=== PATIENT | female | born 1970 | race Caucasian/White ===

== ENCOUNTER 2021-04-13 21:42 | Inpatient (IN) | payer SELFPAY ==
[~2021-04-13] VITALS: Ht 152.4 cm; Wt 68.4 kg
[2021-04-13 22:23] LABS: CLARITY,URINE BLOODY; COLOR,URINE RED
[2021-04-13 22:27] LABS: BACTERIA,URINE 0 /HPF (0-FEW); RBC,URINE TNTC /HPF (0-2)
[2021-04-13] MEDS ORDERED: IV NORMAL SALINE 1000ML BAG 1,000 ML IV ONE (22:30)
[2021-04-13 22:46] LABS: BASO % 1 % (0-3); EOS # 0.3 x10^3/uL (0.0-0.7); EOS % 7 % (0-3); HEMATOCRIT 20.3 % (36.0-47.0); LYMPH # 1.8 x10^3/uL (1.0-4.8); LYMPH % 36 % (24-48); MEAN CORPUSCULAR HEMOGLOBIN 18 pg (25-35); MEAN CORPUSCULAR HGB CONC 28 g/dL (31-37); MEAN CORPUSCULAR VOLUME 62 fL (79-100); MONO # 0.6 x10^3/uL (0.0-1.1); MONO % 12 % (0-9); NEUT # 2.3 x10^3/uL (1.8-7.7); NEUT % 45 % (31-73); PLATELET COUNT 405 x10^3/uL (140-400); RED BLOOD COUNT 3.28 x10^6/uL (3.50-5.40); RED CELL DISTRIBUTION WIDTH 20.4 % (11.5-14.5); WHITE BLOOD COUNT 5.1 x10^3/uL (4.0-11.0)
[2021-04-13 22:52] LABS: HEMOGLOBIN 5.7 g/dL (12.0-15.5)
[2021-04-13 22:55] LABS: CALCIUM 8.2 mg/dL (8.5-10.1); CREATININE 0.7 mg/dL (0.6-1.0); GFR 88.9; POTASSIUM 3.7 mmol/L (3.5-5.1)
[2021-04-13 23:00] LABS: ALBUMIN 3.6 g/dL (3.4-5.0); ALBUMIN/GLOBULIN RATIO 0.9 (1.0-1.7); TOTAL BILIRUBIN 0.2 mg/dL (0.2-1.0); TOTAL PROTEIN 7.4 g/dL (6.4-8.2)
[2021-04-13 23:16] LABS: PROTHROMBIN TIME PATIENT 13.1 SEC (11.7-14.0)
--- NOTE | 2021-04-13 23:16 | PHYS DOC ---
Past Medical History Past Surgical History: No Surgical History Smoking Status: Never Smoker Alcohol Use: Occasionally General Adult EDM: Chief Complaint: VAGINAL PROBLEM HPI: HPI: Patient is a 50 year old female who presents with 10 days of heavy vaginal bleeding and she states she is going through 1-2 pads an hour. She states now today she has been having some blurred vision. Patient states that she is having lower abdominal pain with this. She states she does not have a canvas repairer and has not been seen for this. She states however she has had anemia in the past. Patient rates her pain about a 5 out of 10. She is [place]-speaking and her son and are in the room interpreting for her. Patient denies chest pain, shortness of breath, syncope, headache, fever, back pain, numbness or tingling, focal weakness. She currently takes no medications daily. Review of Systems: Review of Systems: Constitutional: Denies fever or chills. [] Eyes: Denies change in visual acuity. + Intermittent blurred vision] HENT: Denies nasal congestion or sore throat. [] Respiratory: Denies cough or shortness of breath. [] Cardiovascular: Denies chest pain or edema. [] GI: +abdominal pain, denies nausea, vomiting, bloody stools or diarrhea. [] : Denies dysuria. + Heavy vaginal bleeding [] Musculoskeletal: Denies back pain or joint pain. [] Integument: Denies rash. [] Neurologic: Denies headache, focal weakness or sensory changes. [] Endocrine: Denies polyuria or polydipsia. [] Lymphatic: Denies swollen glands. [] Psychiatric: Denies depression or anxiety. [] Heart Score: C/O Chest Pain: No Current Medications: Current Medications Medications (Trade) Dose Ordered Sig/Nabor Start Time Stop Time Status Last Admin Dose Admin Sodium Chloride 1,000 ml @ 1,000 mls/hr 1X ONCE 04/13/21 22:30 04/13/21 23:29 04/13/21 22:34 1,000 MLS/HR Allergies: Allergies: Allergies Coded Allergies Type Severity Reaction Last Updated Verified No Known Drug Allergies 04/13/21 No Physical Exam: PE: Constitutional: Well developed, well nourished, no acute distress, non-toxic appearance. [] HENT: Normocephalic, atraumatic, bilateral external ears normal, oropharynx moist, no oral exudates, nose normal. [] Eyes: PERRLA, EOMI, conjunctiva normal, no discharge. [] Neck: Normal range of motion, no tenderness, supple, no stridor. [] Cardiovascular:Heart rate regular rhythm, no murmur [] Lungs & Thorax: Bilateral breath sounds clear to auscultation [] Abdomen: Bowel sounds normal, soft, no tenderness, no masses, no pulsatile masses. [] Skin: Warm, dry, no erythema, no rash. [] Back: No tenderness, no CVA tenderness. [] Extremities: No tenderness, no cyanosis, no clubbing, ROM intact, no edema. [] Neurologic: Alert and oriented X 3, normal motor function, normal sensory function, no focal deficits noted. [] Psychologic: Affect normal, judgement normal, mood normal. [] Normal physical exam Current Patient Data: Labs: Laboratory Tests Test 04/13/21 22:05 04/13/21 22:30 Urine Collection Type Unknown Urine Color Red Urine Clarity Bloody Urine pH (<5.0-8.0) Urine Specific [place] (1.000-1.030) Urine Protein mg/dL (NEG-TRACE) Urine Glucose (UA) mg/dL (NEG) Urine Ketones (Stick) mg/dL (NEG) Urine Blood (NEG) Urine Nitrite (NEG) Urine Bilirubin (NEG) Urine Urobilinogen Dipstick mg/dL (0.2 mg/dL) Urine Leukocyte Esterase (NEG) Urine RBC Tntc /HPF (0-2) Urine WBC 1-4 /HPF (0-4) Urine Squamous Epithelial Cells Few /LPF Urine Bacteria 0 /HPF (0-FEW) Urine Mucus Slight /LPF White Blood Count 5.1 x10^3/uL (4.0-11.0) Red Blood Count 3.28 x10^6/uL (3.50-5.40) L Hemoglobin 5.7 g/dL (12.0-15.5) *L Hematocrit 20.3 % (36.0-47.0) L Mean Corpuscular Volume 62 fL (79-100) L Mean Corpuscular Hemoglobin 18 pg (25-35) L Mean Corpuscular Hemoglobin Concent 28 g/dL (31-37) L Red Cell Distribution Width 20.4 % (11.5-14.5) H Platelet Count 405 x10^3/uL (140-400) H Neutrophils (%) (Auto) 45 % (31-73) Lymphocytes (%) (Auto) 36 % (24-48) Monocytes (%) (Auto) 12 % (0-9) H Eosinophils (%) (Auto) 7 % (0-3) H Basophils (%) (Auto) 1 % (0-3) Neutrophils # (Auto) 2.3 x10^3/uL (1.8-7.7) Lymphocytes # (Auto) 1.8 x10^3/uL (1.0-4.8) Monocytes # (Auto) 0.6 x10^3/uL (0.0-1.1) Eosinophils # (Auto) 0.3 x10^3/uL (0.0-0.7) Basophils # (Auto) 0.0 x10^3/uL (0.0-0.2) Platelet Estimate Pending Sodium Level 137 mmol/L (136-145) Potassium Level 3.7 mmol/L (3.5-5.1) Chloride Level 103 mmol/L (98-107) Carbon Dioxide Level 26 mmol/L (21-32) Anion Gap 8 (6-14) Blood Urea Nitrogen 9 mg/dL (7-20) Creatinine 0.7 mg/dL (0.6-1.0) Estimated GFR (Cockcroft-Gault) 88.9 BUN/Creatinine Ratio 13 (6-20) Glucose Level 106 mg/dL (70-99) H Calcium Level 8.2 mg/dL (8.5-10.1) L Total Bilirubin 0.2 mg/dL (0.2-1.0) Aspartate Amino Transferase (AST) 22 U/L (15-37) Alanine Aminotransferase (ALT) 29 U/L (14-59) Alkaline Phosphatase 110 U/L (46-116) Total Protein 7.4 g/dL (6.4-8.2) Albumin 3.6 g/dL (3.4-5.0) Albumin/Globulin Ratio 0.9 (1.0-1.7) L Laboratory Tests 04/13/21 22:30 Laboratory Tests 04/13/21 22:30 Microbiology 04/13/21 Wet Prep - Final, Complete Vital Signs: Vital Signs Date Time Temp Pulse Resp B/P (MAP) Pulse Ox O2 Delivery O2 Flow Rate FiO2 04/13/21 22:25 98.0 87 20 145/75 (98) 98 Room Air 98.0 EKG: EKG: [] Radiology/Procedures: Radiology/Procedures: [] Impression: [facility] [address] [place] [address] IMAGING REPORT Signed PATIENT: SHYANNE HALL ACCOUNT: [id number] : 1970 LOCATION: ER AGE: 50 SEX: F EXAM STATUS: REG ER ORD. PHYSICIAN: SPIKE RICHARD APRN REASON: HEAVY VAGINAL BLEEDING, ABD PAIN PROCEDURE: PELVIS W/TV US PELVIS W/TV History: Reason: HEAVY VAGINAL BLEEDING, ABD PAIN / Spl. Instructions: / History: Comparison: None Technique: Grayscale and color Doppler imaging of the pelvis was performed using transabdominal and transvaginal technique. Findings: The uterus measures 8.4 x 5.6 x 4.9 cm. Multiple nabothian cysts within the cervix largest measures 2.1 cm. The endometrial stripe measures 1.5 mm. Small fluid within the upper endometrial canal. Right ovary measures 4.9 x 2.9 x 3.0 cm. To right ovarian cysts measuring 4.2 x 3.3 cm and 3.5 x 2.3 cm. Left ovary not identified, may relate to positioning and overlying structures. IMPRESSION: 1. Small fluid within the upper endometrial canal. 2. Right ovarian simple cysts. Electronically signed by: Antwan Cardona DO (04/13/2021 11:51 PM) [facility] DICTATED and SIGNED BY: ANTWAN CARDONA DO DATE: 04/13/21 [id number] 0 Course & Med Decision Making: Course & Med Decision Making Pertinent Labs and Imaging studies reviewed. (See chart for details) See HPI. Alert and oriented x4. Ambulatory steady gait. Speaks in full clear sentences. and son interpret for the patient. Abdomen is soft and nontender. Skin pink warm and dry. Vital signs are within normal limits. Her hemoglobin is only 5.7. I ordered 2 units of blood. I have spoke to Dr. Cardona and he gave no other orders for the patient. Pelvic Exam: Corporate Tutor present Abdomen: Nontender External Genitalia: Normal Skin Speculum: Normal vaginal mucosa, large cervical discharge Bimanual: No adnexal masses or tenderness, No CMT [] Dragon Disclaimer: Dragon Disclaimer: This electronic medical record was generated, in whole or in part, using a voice recognition dictation system. Departure Departure Impression: Primary Impression: Low hemoglobin Additional Impression: Dysfunctional uterine bleeding Disposition: ADMITTED INPATIENT Admitting Physician: WILLAM Condition: STABLE Referrals: NO PCP (PCP) SPIKE RICHARD APRN Apr 13, 2021 23:16
--- NOTE | 2021-04-13 23:53 | RAD ---
US PELVIS W/TV History: Reason: HEAVY VAGINAL BLEEDING, ABD PAIN / Spl. Instructions: / History: Comparison: None Technique: Grayscale and color Doppler imaging of the pelvis was performed using transabdominal and t ransvaginal technique. Findings: The uterus measures 8.4 x 5.6 x 4.9 cm. Multiple nabothian cysts within the cervix largest measures 2.1 cm. The endometrial stripe measures 1.5 mm. Small fluid within the upper endometrial canal. Right ovary measures 4.9 x 2.9 x 3.0 cm. To right ovarian cysts measuring 4.2 x 3.3 cm and 3.5 x 2.3 cm. Left ovary not identified, may relate to positioning and overlying structures. IMPRESSION: 1. Small fluid within the upper endometrial canal. 2. Right ovarian simple cysts. Electronically signed by: Antwan Thurston DO (04/13/2021 11:51 PM) [facility]
[2021-04-14] VITALS (14 sets, daily range): BP systolic 106–141; BP diastolic 57–85
[2021-04-14 00:17] LABS: ANISOCYTOSIS MOD; HYPOCHROMIA MARKED; MICROCYTOSIS MARKED; PLT ESTIMATE ADEQUATE (ADEQUATE); POLYCHROMASIA SLIGHT
[2021-04-14 00:18] LABS: OVALOCYTES OCC; SPHEROCYTES FEW; TARGET CELLS OCC
[2021-04-14 07:39] LABS: BASO # 0.1 x10^3/uL (0.0-0.2); BASO % 2 % (0-3); EOS # 0.2 x10^3/uL (0.0-0.7); EOS % 6 % (0-3); HEMATOCRIT 24.9 % (36.0-47.0); LYMPH # 1.4 x10^3/uL (1.0-4.8); LYMPH % 33 % (24-48); MEAN CORPUSCULAR HEMOGLOBIN 21 pg (25-35); MEAN CORPUSCULAR HGB CONC 31 g/dL (31-37); MEAN CORPUSCULAR VOLUME 67 fL (79-100); MONO # 0.5 x10^3/uL (0.0-1.1); MONO % 12 % (0-9); NEUT # 2.1 x10^3/uL (1.8-7.7); NEUT % 48 % (31-73); PLATELET COUNT 344 x10^3/uL (140-400); RED BLOOD COUNT 3.74 x10^6/uL (3.50-5.40); RED CELL DISTRIBUTION WIDTH 26.5 % (11.5-14.5); WHITE BLOOD COUNT 4.3 x10^3/uL (4.0-11.0)
[2021-04-14 07:53] LABS: HEMOGLOBIN 7.7 g/dL (12.0-15.5)
[2021-04-14 08:00] LABS: ALBUMIN 3.2 g/dL (3.4-5.0); ALBUMIN/GLOBULIN RATIO 0.9 (1.0-1.7); CREATININE 0.6 mg/dL (0.6-1.0); GFR 106.3; POTASSIUM 4.1 mmol/L (3.5-5.1); TOTAL BILIRUBIN 0.4 mg/dL (0.2-1.0); TOTAL PROTEIN 6.7 g/dL (6.4-8.2)
--- NOTE | 2021-04-14 10:17 | PDOC2 ---
CONSULT Date of Consult Date of Consult DATE: 04/14/21 TIME: 10:16 Reason for Consult Reason for Consult: Anemia, VB History of Present Illness Reason for Visit: 50y who was admitted for transfusion. The pt presented to the ER with 10 days of heavy bleeding. At times she was going through 1-2 pads and hour. Last night the bleeding was increasingly heavy. She has never had bleeding like this before. It is heavier and longer than ever. Although she feels that her periods have been heavier since her last in 2007. Typically her periods are monthly, but prior to this period that began in the end of Mar, she had not had a period since Jan. She has never received a transfusion in the past related to her period. She does not have an chair caner or PCP. In the ER her Hgb was found to be 5.7. An u/s revealed a uterus measuring 8.4 x 5.6 x 4.9 cm with a 4.2 cm right ovarian cyst. PMH: Denies PSH: Denies Meds: None All: NKDA OBHx: 5 x TSVD Counter Intelligence: LMP 04/04/21 Never contraception 15yo / regular SH: no tob, no EtOH FH: noncontributory Current Problem List Problem List Problems Medical Problems: (1) Dysfunctional uterine bleeding Status: Acute (2) Low hemoglobin Status: Acute Current Medications Current Medications Current Medications Sodium Chloride 1,000 ml @ 1,000 mls/hr 1X ONCE IV Last administered on 04/13/21at 22:34; Start 04/13/21 at 22:30; Stop 04/13/21 at 23:29; Status DC Medroxyprogesterone Acetate (Provera) 5 mg DAILY PO Last administered on 04/14/21at 09:15; Start 04/14/21 at 09:00 Allergies Allergies: Coded Allergies: No Known Drug Allergies (Unverified , 04/13/21) Physical Exam General: Alert, Oriented X3, Cooperative, No acute distress HEENT: PERRLA, Mucous membr. moist/pink Lungs: Clear to auscultation, Normal air movement Heart: Regular rate, Normal S1, Normal S2, No murmurs Abdomen: Normal bowel sounds, Soft, No tenderness, No hepatosplenomegaly, No masses Extremities: No clubbing, No cyanosis, No edema, Normal pulses, No tenderness/swelling Skin: No rashes, No breakdown Neuro: Normal gait, Normal speech, Normal tone, Sensation intact, Reflexes 2+ Psych/Mental Status: Mental status NL, Mood NL Vitals VITALS Vital Signs Date Time Temp Pulse Resp B/P (MAP) Pulse Ox O2 Delivery O2 Flow Rate FiO2 04/14/21 08:00 Room Air 04/14/21 07:48 98.5 71 16 118/77 98.5 04/14/21 07:00 100 Labs Labs Laboratory Tests Test 04/13/21 22:05 04/13/21 22:30 04/14/21 07:25 Urine Collection Type Unknown Urine Color Red Urine Clarity Bloody Urine pH (<5.0-8.0) Urine Specific [place] (1.000-1.030) Urine Protein mg/dL (NEG-TRACE) Urine Glucose (UA) mg/dL (NEG) Urine Ketones (Stick) mg/dL (NEG) Urine Blood (NEG) Urine Nitrite (NEG) Urine Bilirubin (NEG) Urine Urobilinogen Dipstick mg/dL (0.2 mg/dL) Urine Leukocyte Esterase (NEG) Urine RBC Tntc /HPF (0-2) Urine WBC 1-4 /HPF (0-4) Urine Squamous Epithelial Cells Few /LPF Urine Bacteria 0 /HPF (0-FEW) Urine Mucus Slight /LPF White Blood Count 5.1 x10^3/uL (4.0-11.0) 4.3 x10^3/uL (4.0-11.0) Red Blood Count 3.28 x10^6/uL (3.50-5.40) 3.74 x10^6/uL (3.50-5.40) Hemoglobin 5.7 g/dL (12.0-15.5) 7.7 g/dL (12.0-15.5) Hematocrit 20.3 % (36.0-47.0) 24.9 % (36.0-47.0) Mean Corpuscular Volume 62 fL (79-100) 67 fL (79-100) Mean Corpuscular Hemoglobin 18 pg (25-35) 21 pg (25-35) Mean Corpuscular Hemoglobin Concent 28 g/dL (31-37) 31 g/dL (31-37) Red Cell Distribution Width 20.4 % (11.5-14.5) 26.5 % (11.5-14.5) Platelet Count 405 x10^3/uL (140-400) 344 x10^3/uL (140-400) Neutrophils (%) (Auto) 45 % (31-73) 48 % (31-73) Lymphocytes (%) (Auto) 36 % (24-48) 33 % (24-48) Monocytes (%) (Auto) 12 % (0-9) 12 % (0-9) Eosinophils (%) (Auto) 7 % (0-3) 6 % (0-3) Basophils (%) (Auto) 1 % (0-3) 2 % (0-3) Neutrophils # (Auto) 2.3 x10^3/uL (1.8-7.7) 2.1 x10^3/uL (1.8-7.7) Lymphocytes # (Auto) 1.8 x10^3/uL (1.0-4.8) 1.4 x10^3/uL (1.0-4.8) Monocytes # (Auto) 0.6 x10^3/uL (0.0-1.1) 0.5 x10^3/uL (0.0-1.1) Eosinophils # (Auto) 0.3 x10^3/uL (0.0-0.7) 0.2 x10^3/uL (0.0-0.7) Basophils # (Auto) 0.0 x10^3/uL (0.0-0.2) 0.1 x10^3/uL (0.0-0.2) Platelet Estimate Adequate (ADEQUATE) Polychromasia Slight Hypochromasia Marked Anisocytosis Mod Microcytosis Marked Spherocytes Few Target Cells Occ Ovalocytes Occ Prothrombin Time 13.1 SEC (11.7-14.0) Prothromb Time International Ratio 1.0 (0.8-1.1) Activated Partial Thromboplast Time 28 SEC (24-38) Maternal Serum HCG Beta Subunit < 1 mIU/mL (0-5) Sodium Level 137 mmol/L (136-145) 141 mmol/L (136-145) Potassium Level 3.7 mmol/L (3.5-5.1) 4.1 mmol/L (3.5-5.1) Chloride Level 103 mmol/L (98-107) 109 mmol/L (98-107) Carbon Dioxide Level 26 mmol/L (21-32) 25 mmol/L (21-32) Anion Gap 8 (6-14) 7 (6-14) Blood Urea Nitrogen 9 mg/dL (7-20) 8 mg/dL (7-20) Creatinine 0.7 mg/dL (0.6-1.0) 0.6 mg/dL (0.6-1.0) Estimated GFR (Cockcroft-Gault) 88.9 106.3 BUN/Creatinine Ratio 13 (6-20) 13 (6-20) Glucose Level 106 mg/dL (70-99) 93 mg/dL (70-99) Calcium Level 8.2 mg/dL (8.5-10.1) 8.0 mg/dL (8.5-10.1) Iron Level 18 ug/dL (50-170) Total Iron Binding Capacity 471 ug/dL (250-450) Iron Saturation 4 % (15-34) Ferritin 2 ng/mL (8-252) Total Bilirubin 0.2 mg/dL (0.2-1.0) 0.4 mg/dL (0.2-1.0) Aspartate Amino Transf (AST/SGOT) 22 U/L (15-37) 24 U/L (15-37) Alanine Aminotransferase (ALT/SGPT) 29 U/L (14-59) 26 U/L (14-59) Alkaline Phosphatase 110 U/L (46-116) 90 U/L (46-116) Total Protein 7.4 g/dL (6.4-8.2) 6.7 g/dL (6.4-8.2) Albumin 3.6 g/dL (3.4-5.0) 3.2 g/dL (3.4-5.0) Albumin/Globulin Ratio 0.9 (1.0-1.7) 0.9 (1.0-1.7) Laboratory Tests Test 04/13/21 22:05 04/13/21 22:30 04/14/21 07:25 Urine Collection Type Unknown Urine Color Red Urine Clarity Bloody Urine pH (<5.0-8.0) Urine Specific [place] (1.000-1.030) Urine Protein mg/dL (NEG-TRACE) Urine Glucose (UA) mg/dL (NEG) Urine Ketones (Stick) mg/dL (NEG) Urine Blood (NEG) Urine Nitrite (NEG) Urine Bilirubin (NEG) Urine Urobilinogen Dipstick mg/dL (0.2 mg/dL) Urine Leukocyte Esterase (NEG) Urine RBC Tntc /HPF (0-2) Urine WBC 1-4 /HPF (0-4) Urine Squamous Epithelial Cells Few /LPF Urine Bacteria 0 /HPF (0-FEW) Urine Mucus Slight /LPF White Blood Count 5.1 x10^3/uL (4.0-11.0) 4.3 x10^3/uL (4.0-11.0) Red Blood Count 3.28 x10^6/uL (3.50-5.40) 3.74 x10^6/uL (3.50-5.40) Hemoglobin 5.7 g/dL (12.0-15.5) 7.7 g/dL (12.0-15.5) Hematocrit 20.3 % (36.0-47.0) 24.9 % (36.0-47.0) Mean Corpuscular Volume 62 fL (79-100) 67 fL (79-100) Mean Corpuscular Hemoglobin 18 pg (25-35) 21 pg (25-35) Mean Corpuscular Hemoglobin Concent 28 g/dL (31-37) 31 g/dL (31-37) Red Cell Distribution Width 20.4 % (11.5-14.5) 26.5 % (11.5-14.5) Platelet Count 405 x10^3/uL (140-400) 344 x10^3/uL (140-400) Neutrophils (%) (Auto) 45 % (31-73) 48 % (31-73) Lymphocytes (%) (Auto) 36 % (24-48) 33 % (24-48) Monocytes (%) (Auto) 12 % (0-9) 12 % (0-9) Eosinophils (%) (Auto) 7 % (0-3) 6 % (0-3) Basophils (%) (Auto) 1 % (0-3) 2 % (0-3) Neutrophils # (Auto) 2.3 x10^3/uL (1.8-7.7) 2.1 x10^3/uL (1.8-7.7) Lymphocytes # (Auto) 1.8 x10^3/uL (1.0-4.8) 1.4 x10^3/uL (1.0-4.8) Monocytes # (Auto) 0.6 x10^3/uL (0.0-1.1) 0.5 x10^3/uL (0.0-1.1) Eosinophils # (Auto) 0.3 x10^3/uL (0.0-0.7) 0.2 x10^3/uL (0.0-0.7) Basophils # (Auto) 0.0 x10^3/uL (0.0-0.2) 0.1 x10^3/uL (0.0-0.2) Platelet Estimate Adequate (ADEQUATE) Polychromasia Slight Hypochromasia Marked Anisocytosis Mod Microcytosis Marked Spherocytes Few Target Cells Occ Ovalocytes Occ Prothrombin Time 13.1 SEC (11.7-14.0) Prothromb Time International Ratio 1.0 (0.8-1.1) Activated Partial Thromboplast Time 28 SEC (24-38) Maternal Serum HCG Beta Subunit < 1 mIU/mL (0-5) Sodium Level 137 mmol/L (136-145) 141 mmol/L (136-145) Potassium Level 3.7 mmol/L (3.5-5.1) 4.1 mmol/L (3.5-5.1) Chloride Level 103 mmol/L (98-107) 109 mmol/L (98-107) Carbon Dioxide Level 26 mmol/L (21-32) 25 mmol/L (21-32) Anion Gap 8 (6-14) 7 (6-14) Blood Urea Nitrogen 9 mg/dL (7-20) 8 mg/dL (7-20) Creatinine 0.7 mg/dL (0.6-1.0) 0.6 mg/dL (0.6-1.0) Estimated GFR (Cockcroft-Gault) 88.9 106.3 BUN/Creatinine Ratio 13 (6-20) 13 (6-20) Glucose Level 106 mg/dL (70-99) 93 mg/dL (70-99) Calcium Level 8.2 mg/dL (8.5-10.1) 8.0 mg/dL (8.5-10.1) Iron Level 18 ug/dL (50-170) Total Iron Binding Capacity 471 ug/dL (250-450) Iron Saturation 4 % (15-34) Ferritin 2 ng/mL (8-252) Total Bilirubin 0.2 mg/dL (0.2-1.0) 0.4 mg/dL (0.2-1.0) Aspartate Amino Transf (AST/SGOT) 22 U/L (15-37) 24 U/L (15-37) Alanine Aminotransferase (ALT/SGPT) 29 U/L (14-59) 26 U/L (14-59) Alkaline Phosphatase 110 U/L (46-116) 90 U/L (46-116) Total Protein 7.4 g/dL (6.4-8.2) 6.7 g/dL (6.4-8.2) Albumin 3.6 g/dL (3.4-5.0) 3.2 g/dL (3.4-5.0) Albumin/Globulin Ratio 0.9 (1.0-1.7) 0.9 (1.0-1.7) Assessment/Plan Assessment/Plan Assessment: 50y who was admitted for transfusion Recommendations: 1.) Anemia Hgb 5.7 on admission. Has risen to 7.7 after 2U pRBC. Most likely to her heavy menstrual cycle. 2.) Menorrhagia Feels that her period have been heavy since 2007. Over the last 10 days it has been increasingly heavy. Feels that it has improved over last night. Discussed medical and surgical management options. Medical management included hormonal contraception like Provera, Depo, etc. Surgical options would include ablation and hysterectomy. Discussed starting with medical options initially and if ineffective could move toward surgical options. Would start Provera 5 mg daily. If bleeding continues to be slow could d/c later today or tomorrow. 3.) Ovarian cyst simple 4.2 cm. No intervention necessary 4.) Elevated BP may have HTN. Does not have a PCP 5.) Will cont to follow while hospitalized 6.) When d/c will need 1 week f/u in my office MADELYN CARDONA MD Apr 14, 2021 10:17
[2021-04-14] MEDS ORDERED: ELECTROLYTE (NON-ICU) PROTOCOL. MC PRN (10:30)
[2021-04-14] MEDS ORDERED: ZOLPIDEM 5 MG TABLET. PO PRN (10:30)
[2021-04-14] MEDS ORDERED: CALCIUM CARBONATE 500 MG TAB.CHEW PO PRN (10:30)
[2021-04-14] MEDS ORDERED: MORPHINE SULFATE 2 MG/ML INJ. IV PRN ×2 (10:30)
[2021-04-14] MEDS ORDERED: ONDANSETRON PF 4 MG/2 ML VIAL. IVP PRN (10:30)
[2021-04-14] MEDS ORDERED: IBUPROFEN 400 MG TABLET. PO ONE (12:45)
--- NOTE | 2021-04-14 13:26 | PDOC1 ---
History and Physical Date of Service: DOS: DATE: 04/14/21 TIME: 13:17 Chief Complaint: Chief Complain: abnormal uterine bleeding History of Present Illness: HPI: Patient is a 50 year old female who presents with 10 days of heavy vaginal bleeding to the point of going through 1-2 pads an hour. She developed some blurry vision leading her to present overnight. Patient states that she is having lower abdominal pain with this. She states she does not have a red lead burner and has not been seen for this. She states however she has had anemia in the past. Patient rates her pain about a 5 out of 10. She is Occitan-speaking and her son and are in the room interpreting for her. Patient denies chest pain, shortness of breath, syncope, headache, fever, back pain, numbness or tingling, focal weakness. She currently takes no medications daily. Past Medical/Surgical History: PMH/PSH: Past Surgical History: No Surgical History Smoking Status: Never Smoker Alcohol Use: Occasionally Denies drug use Allergies: Allergies: Coded Allergies: No Known Drug Allergies (Unverified , 04/13/21) Family History: Family History: none known Current Medications: Current Medications Current Medications Sodium Chloride 1,000 ml @ 1,000 mls/hr 1X ONCE IV Last administered on 04/13/21at 22:34; Start 04/13/21 at 22:30; Stop 04/13/21 at 23:29; Status DC Medroxyprogesterone Acetate (Provera) 5 mg DAILY PO Last administered on 04/14/21at 09:15; Start 04/14/21 at 09:00 Ondansetron HCl (Zofran) 4 mg PRN Q6HRS PRN IVP NAUSEA/VOMITING; Start 04/14/21 at 10:30 Calcium Carbonate/ Glycine (Tums) 500 mg PRN Q3HRS PRN PO UPSET STOMACH; Start 04/14/21 at 10:30 Zolpidem Tartrate (Ambien) 5 mg PRN QHS PRN PO INSOMNIA, MAY REPEAT IN 1HR; Start 04/14/21 at 10:30 Info (Non-Icu Electrolyte Protocol) 1 ea PRN DAILY PRN MC SEE COMMENTS; Start 04/14/21 at 10:30 Morphine Sulfate (Morphine Sulfate) 1 mg PRN Q1HR PRN IV MODERATE PAIN; Start 04/14/21 at 10:30 Morphine Sulfate (Morphine Sulfate) 2 mg PRN Q1HR PRN IV SEVERE PAIN; Start 04/14/21 at 10:30 Acetaminophen (Tylenol) 650 mg PRN Q6HRS PRN PO Headaches, Temp > 101.5F; Start 04/14/21 at 10:30 Senna/Docusate Sodium (Senna Plus) 1 tab BID PO ; Start 04/14/21 at 21:00 Ibuprofen (Motrin) 400 mg 1X ONCE PO Last administered on 04/14/21at 13:10; Start 04/14/21 at 12:45; Stop 04/14/21 at 12:49; Status DC ROS: Review of Systems Review of System Unlessnoted in HPI 14pt ROS was negative Physical Exam: Vital Signs: Vital Signs Date Time Temp Pulse Resp B/P (MAP) Pulse Ox O2 Delivery O2 Flow Rate FiO2 04/14/21 11:00 98.8 80 18 141/85 (103) 100 Room Air 98.8 Physcial Exam: GEN: No apparent distress. Alert and oriented HEENT: Normal cephalic, atraumatic, external auditory canals are patent EYES: Extraocular muscles are intact, pupil are equally round and reactive to light and accommodation MUSCULOSKELETAL: Well developed , well nourished, good range of motion ENDOCRINE: No thyromegaly was palpated LYMPHATICS: No cervical chain or axillary nodes were noted HEMATOPOIETIC: No bruising NECK: Supple, no JVD, no thyromegaly was noted LUNGS: Clear to auscultation in all lung coronel without rhonchi or wheezing HEART: RRR, S!, S2 present. Peripheral pulses intact, no obvious murmurs noted ABDOMEN: Soft, nontender. Positive bowel sounds, no organomegaly, normal bowel sounds EXTREMITIES: Without clubbing, cyanosis, or edema. Pedal pulses intact. Negative Homans sign NEUROLOGIC: Normal speech and tone. A&O x 3, moves all extremities, no obvious focal deficits PSYCHIATRIC: Normal affect, normal mood. Stable SKIN: No ulcerations or rashes, good skin turgor, no jaundice VASCULAR: Good capillary refill, neurovascular bundle appears to be intact Labs: Labs: Laboratory Tests Test 04/13/21 22:05 04/13/21 22:30 04/14/21 07:25 Urine Collection Type Unknown Urine Color Red Urine Clarity Bloody Urine pH (<5.0-8.0) Urine Specific [place] (1.000-1.030) Urine Protein mg/dL (NEG-TRACE) Urine Glucose (UA) mg/dL (NEG) Urine Ketones (Stick) mg/dL (NEG) Urine Blood (NEG) Urine Nitrite (NEG) Urine Bilirubin (NEG) Urine Urobilinogen Dipstick mg/dL (0.2 mg/dL) Urine Leukocyte Esterase (NEG) Urine RBC Tntc /HPF (0-2) Urine WBC 1-4 /HPF (0-4) Urine Squamous Epithelial Cells Few /LPF Urine Bacteria 0 /HPF (0-FEW) Urine Mucus Slight /LPF White Blood Count 5.1 x10^3/uL (4.0-11.0) 4.3 x10^3/uL (4.0-11.0) Red Blood Count 3.28 x10^6/uL (3.50-5.40) 3.74 x10^6/uL (3.50-5.40) Hemoglobin 5.7 g/dL (12.0-15.5) 7.7 g/dL (12.0-15.5) Hematocrit 20.3 % (36.0-47.0) 24.9 % (36.0-47.0) Mean Corpuscular Volume 62 fL (79-100) 67 fL (79-100) Mean Corpuscular Hemoglobin 18 pg (25-35) 21 pg (25-35) Mean Corpuscular Hemoglobin Concent 28 g/dL (31-37) 31 g/dL (31-37) Red Cell Distribution Width 20.4 % (11.5-14.5) 26.5 % (11.5-14.5) Platelet Count 405 x10^3/uL (140-400) 344 x10^3/uL (140-400) Neutrophils (%) (Auto) 45 % (31-73) 48 % (31-73) Lymphocytes (%) (Auto) 36 % (24-48) 33 % (24-48) Monocytes (%) (Auto) 12 % (0-9) 12 % (0-9) Eosinophils (%) (Auto) 7 % (0-3) 6 % (0-3) Basophils (%) (Auto) 1 % (0-3) 2 % (0-3) Neutrophils # (Auto) 2.3 x10^3/uL (1.8-7.7) 2.1 x10^3/uL (1.8-7.7) Lymphocytes # (Auto) 1.8 x10^3/uL (1.0-4.8) 1.4 x10^3/uL (1.0-4.8) Monocytes # (Auto) 0.6 x10^3/uL (0.0-1.1) 0.5 x10^3/uL (0.0-1.1) Eosinophils # (Auto) 0.3 x10^3/uL (0.0-0.7) 0.2 x10^3/uL (0.0-0.7) Basophils # (Auto) 0.0 x10^3/uL (0.0-0.2) 0.1 x10^3/uL (0.0-0.2) Platelet Estimate Adequate (ADEQUATE) Polychromasia Slight Hypochromasia Marked Anisocytosis Mod Microcytosis Marked Spherocytes Few Target Cells Occ Ovalocytes Occ Prothrombin Time 13.1 SEC (11.7-14.0) Prothromb Time International Ratio 1.0 (0.8-1.1) Activated Partial Thromboplast Time 28 SEC (24-38) Maternal Serum HCG Beta Subunit < 1 mIU/mL (0-5) Sodium Level 137 mmol/L (136-145) 141 mmol/L (136-145) Potassium Level 3.7 mmol/L (3.5-5.1) 4.1 mmol/L (3.5-5.1) Chloride Level 103 mmol/L (98-107) 109 mmol/L (98-107) Carbon Dioxide Level 26 mmol/L (21-32) 25 mmol/L (21-32) Anion Gap 8 (6-14) 7 (6-14) Blood Urea Nitrogen 9 mg/dL (7-20) 8 mg/dL (7-20) Creatinine 0.7 mg/dL (0.6-1.0) 0.6 mg/dL (0.6-1.0) Estimated GFR (Cockcroft-Gault) 88.9 106.3 BUN/Creatinine Ratio 13 (6-20) 13 (6-20) Glucose Level 106 mg/dL (70-99) 93 mg/dL (70-99) Calcium Level 8.2 mg/dL (8.5-10.1) 8.0 mg/dL (8.5-10.1) Iron Level 18 ug/dL (50-170) Total Iron Binding Capacity 471 ug/dL (250-450) Iron Saturation 4 % (15-34) Ferritin 2 ng/mL (8-252) Total Bilirubin 0.2 mg/dL (0.2-1.0) 0.4 mg/dL (0.2-1.0) Aspartate Amino Transf (AST/SGOT) 22 U/L (15-37) 24 U/L (15-37) Alanine Aminotransferase (ALT/SGPT) 29 U/L (14-59) 26 U/L (14-59) Alkaline Phosphatase 110 U/L (46-116) 90 U/L (46-116) Total Protein 7.4 g/dL (6.4-8.2) 6.7 g/dL (6.4-8.2) Albumin 3.6 g/dL (3.4-5.0) 3.2 g/dL (3.4-5.0) Albumin/Globulin Ratio 0.9 (1.0-1.7) 0.9 (1.0-1.7) Laboratory Tests Test 04/13/21 22:05 04/13/21 22:30 04/14/21 07:25 Urine Collection Type Unknown Urine Color Red Urine Clarity Bloody Urine pH (<5.0-8.0) Urine Specific [place] (1.000-1.030) Urine Protein mg/dL (NEG-TRACE) Urine Glucose (UA) mg/dL (NEG) Urine Ketones (Stick) mg/dL (NEG) Urine Blood (NEG) Urine Nitrite (NEG) Urine Bilirubin (NEG) Urine Urobilinogen Dipstick mg/dL (0.2 mg/dL) Urine Leukocyte Esterase (NEG) Urine RBC Tntc /HPF (0-2) Urine WBC 1-4 /HPF (0-4) Urine Squamous Epithelial Cells Few /LPF Urine Bacteria 0 /HPF (0-FEW) Urine Mucus Slight /LPF White Blood Count 5.1 x10^3/uL (4.0-11.0) 4.3 x10^3/uL (4.0-11.0) Red Blood Count 3.28 x10^6/uL (3.50-5.40) 3.74 x10^6/uL (3.50-5.40) Hemoglobin 5.7 g/dL (12.0-15.5) 7.7 g/dL (12.0-15.5) Hematocrit 20.3 % (36.0-47.0) 24.9 % (36.0-47.0) Mean Corpuscular Volume 62 fL (79-100) 67 fL (79-100) Mean Corpuscular Hemoglobin 18 pg (25-35) 21 pg (25-35) Mean Corpuscular Hemoglobin Concent 28 g/dL (31-37) 31 g/dL (31-37) Red Cell Distribution Width 20.4 % (11.5-14.5) 26.5 % (11.5-14.5) Platelet Count 405 x10^3/uL (140-400) 344 x10^3/uL (140-400) Neutrophils (%) (Auto) 45 % (31-73) 48 % (31-73) Lymphocytes (%) (Auto) 36 % (24-48) 33 % (24-48) Monocytes (%) (Auto) 12 % (0-9) 12 % (0-9) Eosinophils (%) (Auto) 7 % (0-3) 6 % (0-3) Basophils (%) (Auto) 1 % (0-3) 2 % (0-3) Neutrophils # (Auto) 2.3 x10^3/uL (1.8-7.7) 2.1 x10^3/uL (1.8-7.7) Lymphocytes # (Auto) 1.8 x10^3/uL (1.0-4.8) 1.4 x10^3/uL (1.0-4.8) Monocytes # (Auto) 0.6 x10^3/uL (0.0-1.1) 0.5 x10^3/uL (0.0-1.1) Eosinophils # (Auto) 0.3 x10^3/uL (0.0-0.7) 0.2 x10^3/uL (0.0-0.7) Basophils # (Auto) 0.0 x10^3/uL (0.0-0.2) 0.1 x10^3/uL (0.0-0.2) Platelet Estimate Adequate (ADEQUATE) Polychromasia Slight Hypochromasia Marked Anisocytosis Mod Microcytosis Marked Spherocytes Few Target Cells Occ Ovalocytes Occ Prothrombin Time 13.1 SEC (11.7-14.0) Prothromb Time International Ratio 1.0 (0.8-1.1) Activated Partial Thromboplast Time 28 SEC (24-38) Maternal Serum HCG Beta Subunit < 1 mIU/mL (0-5) Sodium Level 137 mmol/L (136-145) 141 mmol/L (136-145) Potassium Level 3.7 mmol/L (3.5-5.1) 4.1 mmol/L (3.5-5.1) Chloride Level 103 mmol/L (98-107) 109 mmol/L (98-107) Carbon Dioxide Level 26 mmol/L (21-32) 25 mmol/L (21-32) Anion Gap 8 (6-14) 7 (6-14) Blood Urea Nitrogen 9 mg/dL (7-20) 8 mg/dL (7-20) Creatinine 0.7 mg/dL (0.6-1.0) 0.6 mg/dL (0.6-1.0) Estimated GFR (Cockcroft-Gault) 88.9 106.3 BUN/Creatinine Ratio 13 (6-20) 13 (6-20) Glucose Level 106 mg/dL (70-99) 93 mg/dL (70-99) Calcium Level 8.2 mg/dL (8.5-10.1) 8.0 mg/dL (8.5-10.1) Iron Level 18 ug/dL (50-170) Total Iron Binding Capacity 471 ug/dL (250-450) Iron Saturation 4 % (15-34) Ferritin 2 ng/mL (8-252) Total Bilirubin 0.2 mg/dL (0.2-1.0) 0.4 mg/dL (0.2-1.0) Aspartate Amino Transf (AST/SGOT) 22 U/L (15-37) 24 U/L (15-37) Alanine Aminotransferase (ALT/SGPT) 29 U/L (14-59) 26 U/L (14-59) Alkaline Phosphatase 110 U/L (46-116) 90 U/L (46-116) Total Protein 7.4 g/dL (6.4-8.2) 6.7 g/dL (6.4-8.2) Albumin 3.6 g/dL (3.4-5.0) 3.2 g/dL (3.4-5.0) Albumin/Globulin Ratio 0.9 (1.0-1.7) 0.9 (1.0-1.7) Assessment/Plan Assessment/Plan Abnormal uterine bleeding, hx anemia unspecified type -Presenting with 10-day history heavy uterine bleeding. -Required 2 units of blood transfusion hemoglobin up above 7 -Gynecology consult. Given dose medroxyprogesterone. Bleeding seems to have slowed down since then. Monitor hemoglobin overnight. -Home meds as indicated -Hold off DVT prophylaxis with active bleed -Discussed with bedside RN Justifications for Admission Other Justification MARIMAR KELLY MD Apr 14, 2021 13:25
--- NOTE | 2021-04-14 14:24 | NUR ---
SS following for discharge planning. SS reviewed pt chart. Pt is from home with spouse and is currently on room air. Self pay. [facility] following. Discharge plan is currently to home when medically ready for discharge. SS will continue to follow for discharge planning.
[2021-04-14] MEDS: ACETAMINOPHEN 325 MG TABLET. PO PRN (16:12)
[2021-04-14] MEDS ORDERED: MORPHINE SULFATE 2 MG/ML INJ. IVP PRN (17:30)
[2021-04-14] MEDS: SENNOSIDES/DOCUSATE 8.6/50MG TABLET. PO SCH (20:39)
[2021-04-15 03:22] VITALS: BP 108/67
[2021-04-15 07:00] VITALS: BP 112/71
[2021-04-15 07:50] LABS: BASO # 0.1 x10^3/uL (0.0-0.2); BASO % 1 % (0-3); EOS # 0.6 x10^3/uL (0.0-0.7); EOS % 9 % (0-3); HEMATOCRIT 30.8 % (36.0-47.0); HEMOGLOBIN 9.3 g/dL (12.0-15.5); LYMPH % 29 % (24-48); MEAN CORPUSCULAR HEMOGLOBIN 21 pg (25-35); MEAN CORPUSCULAR HGB CONC 30 g/dL (31-37); MEAN CORPUSCULAR VOLUME 68 fL (79-100); MONO # 0.7 x10^3/uL (0.0-1.1); MONO % 11 % (0-9); NEUT # 3.5 x10^3/uL (1.8-7.7); NEUT % 50 % (31-73); PLATELET COUNT 409 x10^3/uL (140-400); RED BLOOD COUNT 4.54 x10^6/uL (3.50-5.40); RED CELL DISTRIBUTION WIDTH 25.4 % (11.5-14.5); WHITE BLOOD COUNT 6.9 x10^3/uL (4.0-11.0)
[2021-04-15] MEDS: SENNOSIDES/DOCUSATE 8.6/50MG TABLET. PO SCH ×2 (09:00→19:45)
[2021-04-15] MEDS: ACETAMINOPHEN 325 MG TABLET. PO PRN ×2 (09:31→17:15)
--- NOTE | 2021-04-15 09:35 | PDOC ---
[employer] PROGRESS NOTE Date of Service: DATE: 04/15/21 TIME: 09:35 Subjective: The pt feels so so. Her bleeding has improved. Informed the pt that her Hgb was stable. She feels that the injection had helped. The pt was asked about the pill (Provera). She states that it didnt seem to help as much as the injection. Explained that pill was for her bleeding. She feels that her bleeding increased a little after the pill. She feels the injection helped more. Told I was unclear what injection she was referring (likely the Morphine). The pt was under the impression that she was having surgery today. I asked the pt why she thought that was the case after our discussion yesterday. Explained that surgery would be reserved if medical management failed. She is worried about this occurring again. Explained that since this was an isolated event, it is likely to never occur again even if no intervention was taken. Objective: Vital Signs: Vital Signs Date Time Temp Pulse Resp B/P (MAP) Pulse Ox O2 Delivery O2 Flow Rate FiO2 04/14/21 07:00 98.5 71 16 118/77 (91) 100 Room Air 98.5 Vital Signs Date Time Temp Pulse Resp B/P (MAP) Pulse Ox O2 Delivery O2 Flow Rate FiO2 04/15/21 07:00 97.9 68 20 112/71 (85) 100 Room Air 97.9 Labs: Laboratory Tests Test 04/15/21 07:25 White Blood Count 6.9 x10^3/uL (4.0-11.0) Red Blood Count 4.54 x10^6/uL (3.50-5.40) Hemoglobin 9.3 g/dL (12.0-15.5) L Hematocrit 30.8 % (36.0-47.0) L Mean Corpuscular Volume 68 fL (79-100) L Mean Corpuscular Hemoglobin 21 pg (25-35) L Mean Corpuscular Hemoglobin Concent 30 g/dL (31-37) L Red Cell Distribution Width 25.4 % (11.5-14.5) H Platelet Count 409 x10^3/uL (140-400) H Neutrophils (%) (Auto) 50 % (31-73) Lymphocytes (%) (Auto) 29 % (24-48) Monocytes (%) (Auto) 11 % (0-9) H Eosinophils (%) (Auto) 9 % (0-3) H Basophils (%) (Auto) 1 % (0-3) Neutrophils # (Auto) 3.5 x10^3/uL (1.8-7.7) Lymphocytes # (Auto) 2.0 x10^3/uL (1.0-4.8) Monocytes # (Auto) 0.7 x10^3/uL (0.0-1.1) Eosinophils # (Auto) 0.6 x10^3/uL (0.0-0.7) Basophils # (Auto) 0.1 x10^3/uL (0.0-0.2) Laboratory Tests 04/15/21 07:25 Laboratory Tests 04/15/21 07:25 Physical Exam: GENERAL: No apparent distress. Alert and oriented. HEENT: Head normocephalic, atraumatic. NECK: Supple LUNGS: Clear to auscultation. HEART: RRR, S1, S2 present, pulses intact ABDOMEN: Soft, positive bowel sounds. EXTREMITIES: No cyanosis or edema. NEUROLOGIC: Normal speech, normal tone PSYCHIATRIC: Normal affect, normal mood. SKIN: No ulceration. Assessment & Plan: A/P 50y who was admitted for transfusion 1.) Anemia Hgb 5.7 -> 2U pRBC -> 7.7 -> 9.3. Most likely to her heavy menstrual cycle. 2.) Menorrhagia Feels that her period has been heavy since 2007. Over the last 10 days it has been increasingly heavy. Improving since admission. Would continue Provera 5 mg daily for the next 10 days. 3.) Ovarian cyst simple 4.2 cm. No intervention necessary 4.) Elevated BP a couple of mild BP over the hospitalization 5.) Pt stable to d/c, can f/u in my office in 1-2 wks MADELYN CARDONA MD Apr 15, 2021 09:35
[2021-04-15 11:00] VITALS: BP 114/69
--- NOTE | 2021-04-15 13:01 | NUR ---
SS following up with discharge planning. SS reviewed pt chart and discussed with pt RN. Pt is currently on room air. Discharge order on the chart for home with self care.
[2021-04-15] MEDS ORDERED: NORG1TAB6 PO (13:41)
[2021-04-15] MEDS ORDERED: FERR325T14 PO (13:42)
[2021-04-15] MEDS ORDERED: VITA1CAP5 PO (13:42)
--- NOTE | 2021-04-15 13:43 | PDOC ---
[employer] PROGRESS NOTE Date of Service DOS: DATE: 04/15/21 TIME: 13:42 Chief Complaint Chief Complaint menoraghia DUB symptomatic anemia iron deficiency Vitals/I&O Vitals/I&O: Vital Signs Date Time Temp Pulse Resp B/P (MAP) Pulse Ox O2 Delivery O2 Flow Rate FiO2 04/15/21 11:00 98.3 82 20 114/69 (84) 99 Room Air 98.3 I & O 04/14/21 04/14/21 04/15/21 15:00 23:00 07:00 Intake Total 240 ml 130 ml 400 ml Balance 240 ml 130 ml 400 ml Physical Exam General: Alert, Oriented X3, Cooperative, No acute distress Heart: Regular rate, Normal S1, Normal S2, No murmurs Abdomen: Normal bowel sounds, Soft, No tenderness, No hepatosplenomegaly, No ma sses Extremities: No clubbing, No cyanosis, No edema, Normal pulses, No tenderness/swelling Skin: No rashes, No breakdown Labs Labs: Laboratory Tests Test 04/15/21 07:25 White Blood Count 6.9 x10^3/uL (4.0-11.0) Red Blood Count 4.54 x10^6/uL (3.50-5.40) Hemoglobin 9.3 g/dL (12.0-15.5) Hematocrit 30.8 % (36.0-47.0) Mean Corpuscular Volume 68 fL (79-100) Mean Corpuscular Hemoglobin 21 pg (25-35) Mean Corpuscular Hemoglobin Concent 30 g/dL (31-37) Red Cell Distribution Width 25.4 % (11.5-14.5) Platelet Count 409 x10^3/uL (140-400) Neutrophils (%) (Auto) 50 % (31-73) Lymphocytes (%) (Auto) 29 % (24-48) Monocytes (%) (Auto) 11 % (0-9) Eosinophils (%) (Auto) 9 % (0-3) Basophils (%) (Auto) 1 % (0-3) Neutrophils # (Auto) 3.5 x10^3/uL (1.8-7.7) Lymphocytes # (Auto) 2.0 x10^3/uL (1.0-4.8) Monocytes # (Auto) 0.7 x10^3/uL (0.0-1.1) Eosinophils # (Auto) 0.6 x10^3/uL (0.0-0.7) Basophils # (Auto) 0.1 x10^3/uL (0.0-0.2) Assessment and Plan Assessmemt and Plan Problems Medical Problems: (1) Dysfunctional uterine bleeding Status: Acute (2) Low hemoglobin Status: Acute Comment Review of Relevant I have reviewed the following items herlinda (where applicable) has been applied. Justifications for Admission Other Justification MARCELA YADAV MD Apr 15, 2021 13:43
--- NOTE | 2021-04-15 13:45 | PDOC3 ---
Discharge Summary Visit Information Date of Admission: Apr 14, 2021 Date of Discharge: Apr 15, 2021 Final Diagnosis nino DUB symptomatic anemia iron deficiency Problems Medical Problems: (1) Dysfunctional uterine bleeding Status: Acute (2) Low hemoglobin Status: Acute Brief Hospital Course Allergies Allergies Coded Allergies Type Severity Reaction Last Updated Verified No Known Drug Allergies 04/13/21 No Vital Signs Vital Signs Date Time Temp Pulse Resp B/P (MAP) Pulse Ox O2 Delivery O2 Flow Rate FiO2 04/15/21 11:00 98.3 82 20 114/69 (84) 99 Room Air 98.3 Lab Results Laboratory Tests Test 04/13/21 22:05 04/13/21 22:30 04/14/21 07:25 04/15/21 07:25 Urine Collection Type Unknown Urine Color Red Urine Clarity Bloody Urine pH (<5.0-8.0) Urine Specific [place] (1.000-1.030) Urine Protein mg/dL (NEG-TRACE) Urine Glucose (UA) mg/dL (NEG) Urine Ketones (Stick) mg/dL (NEG) Urine Blood (NEG) Urine Nitrite (NEG) Urine Bilirubin (NEG) Urine Urobilinogen Dipstick mg/dL (0.2 mg/dL) Urine Leukocyte Esterase (NEG) Urine RBC Tntc /HPF (0-2) Urine WBC 1-4 /HPF (0-4) Urine Squamous Epithelial Cells Few /LPF Urine Bacteria 0 /HPF (0-FEW) Urine Mucus Slight /LPF White Blood Count 5.1 x10^3/uL (4.0-11.0) 4.3 x10^3/uL (4.0-11.0) 6.9 x10^3/uL (4.0-11.0) Red Blood Count 3.28 x10^6/uL (3.50-5.40) 3.74 x10^6/uL (3.50-5.40) 4.54 x10^6/uL (3.50-5.40) Hemoglobin 5.7 g/dL (12.0-15.5) 7.7 g/dL (12.0-15.5) 9.3 g/dL (12.0-15.5) Hematocrit 20.3 % (36.0-47.0) 24.9 % (36.0-47.0) 30.8 % (36.0-47.0) Mean Corpuscular Volume 62 fL (79-100) 67 fL (79-100) 68 fL (79-100) Mean Corpuscular Hemoglobin 18 pg (25-35) 21 pg (25-35) 21 pg (25-35) Mean Corpuscular Hemoglobin Concent 28 g/dL (31-37) 31 g/dL (31-37) 30 g/dL (31-37) Red Cell Distribution Width 20.4 % (11.5-14.5) 26.5 % (11.5-14.5) 25.4 % (11.5-14.5) Platelet Count 405 x10^3/uL (140-400) 344 x10^3/uL (140-400) 409 x10^3/uL (140-400) Neutrophils (%) (Auto) 45 % (31-73) 48 % (31-73) 50 % (31-73) Lymphocytes (%) (Auto) 36 % (24-48) 33 % (24-48) 29 % (24-48) Monocytes (%) (Auto) 12 % (0-9) 12 % (0-9) 11 % (0-9) Eosinophils (%) (Auto) 7 % (0-3) 6 % (0-3) 9 % (0-3) Basophils (%) (Auto) 1 % (0-3) 2 % (0-3) 1 % (0-3) Neutrophils # (Auto) 2.3 x10^3/uL (1.8-7.7) 2.1 x10^3/uL (1.8-7.7) 3.5 x10^3/uL (1.8-7.7) Lymphocytes # (Auto) 1.8 x10^3/uL (1.0-4.8) 1.4 x10^3/uL (1.0-4.8) 2.0 x10^3/uL (1.0-4.8) Monocytes # (Auto) 0.6 x10^3/uL (0.0-1.1) 0.5 x10^3/uL (0.0-1.1) 0.7 x10^3/uL (0.0-1.1) Eosinophils # (Auto) 0.3 x10^3/uL (0.0-0.7) 0.2 x10^3/uL (0.0-0.7) 0.6 x10^3/uL (0.0-0.7) Basophils # (Auto) 0.0 x10^3/uL (0.0-0.2) 0.1 x10^3/uL (0.0-0.2) 0.1 x10^3/uL (0.0-0.2) Platelet Estimate Adequate (ADEQUATE) Polychromasia Slight Hypochromasia Marked Anisocytosis Mod Microcytosis Marked Spherocytes Few Target Cells Occ Ovalocytes Occ Prothrombin Time 13.1 SEC (11.7-14.0) Prothromb Time International Ratio 1.0 (0.8-1.1) Activated Partial Thromboplast Time 28 SEC (24-38) Maternal Serum HCG Beta Subunit < 1 mIU/mL (0-5) Sodium Level 137 mmol/L (136-145) 141 mmol/L (136-145) Potassium Level 3.7 mmol/L (3.5-5.1) 4.1 mmol/L (3.5-5.1) Chloride Level 103 mmol/L (98-107) 109 mmol/L (98-107) Carbon Dioxide Level 26 mmol/L (21-32) 25 mmol/L (21-32) Anion Gap 8 (6-14) 7 (6-14) Blood Urea Nitrogen 9 mg/dL (7-20) 8 mg/dL (7-20) Creatinine 0.7 mg/dL (0.6-1.0) 0.6 mg/dL (0.6-1.0) Estimated GFR (Cockcroft-Gault) 88.9 106.3 BUN/Creatinine Ratio 13 (6-20) 13 (6-20) Glucose Level 106 mg/dL (70-99) 93 mg/dL (70-99) Calcium Level 8.2 mg/dL (8.5-10.1) 8.0 mg/dL (8.5-10.1) Iron Level 18 ug/dL (50-170) Total Iron Binding Capacity 471 ug/dL (250-450) Iron Saturation 4 % (15-34) Ferritin 2 ng/mL (8-252) Total Bilirubin 0.2 mg/dL (0.2-1.0) 0.4 mg/dL (0.2-1.0) Aspartate Amino Transf (AST/SGOT) 22 U/L (15-37) 24 U/L (15-37) Alanine Aminotransferase (ALT/SGPT) 29 U/L (14-59) 26 U/L (14-59) Alkaline Phosphatase 110 U/L (46-116) 90 U/L (46-116) Total Protein 7.4 g/dL (6.4-8.2) 6.7 g/dL (6.4-8.2) Albumin 3.6 g/dL (3.4-5.0) 3.2 g/dL (3.4-5.0) Albumin/Globulin Ratio 0.9 (1.0-1.7) 0.9 (1.0-1.7) Laboratory Tests Test 04/15/21 07:25 White Blood Count 6.9 x10^3/uL (4.0-11.0) Red Blood Count 4.54 x10^6/uL (3.50-5.40) Hemoglobin 9.3 g/dL (12.0-15.5) Hematocrit 30.8 % (36.0-47.0) Mean Corpuscular Volume 68 fL (79-100) Mean Corpuscular Hemoglobin 21 pg (25-35) Mean Corpuscular Hemoglobin Concent 30 g/dL (31-37) Red Cell Distribution Width 25.4 % (11.5-14.5) Platelet Count 409 x10^3/uL (140-400) Neutrophils (%) (Auto) 50 % (31-73) Lymphocytes (%) (Auto) 29 % (24-48) Monocytes (%) (Auto) 11 % (0-9) Eosinophils (%) (Auto) 9 % (0-3) Basophils (%) (Auto) 1 % (0-3) Neutrophils # (Auto) 3.5 x10^3/uL (1.8-7.7) Lymphocytes # (Auto) 2.0 x10^3/uL (1.0-4.8) Monocytes # (Auto) 0.7 x10^3/uL (0.0-1.1) Eosinophils # (Auto) 0.6 x10^3/uL (0.0-0.7) Basophils # (Auto) 0.1 x10^3/uL (0.0-0.2) Brief Hospital Course Ms. Rendon is a 50 old admit with vaginal bleeding Iron def. Hgb 5/5, was 9 on DC iV iron given US showed endometrium of 1.5mm, some cysts, no fibroids, f/u Dr. Moya at for hys Discharge Information Condition at Discharge: Improved Follow Up: Weeks Disposition/Orders: D/C to Home Scheduled Ferrous Sulfate (Ferrous Sulfate) 325 Mg Tablet, 1 TAB PO DAILY for anemia, #30 Prescribed by: MARCELA YADAV on 04/15/21 1342 Norgestimate-Ethinyl Estradiol (Sprintec) 1 Each Tablet, 1 TAB PO DAILY for bleeding, #28 Ref 11 Prescribed by: MARCELA YADAV on 04/15/21 1341 Vitamin B Complex & Vit C No.3 (B Complex With Vitamin C) 1 Each Capsule, 1 CAP PO DAILYWBKFT for anemia, #100 Ref 0 Prescribed by: MARCELA YADAV on 04/15/21 1342 Patient Instructions Patient Instructions face to face done x3 Justicifation of Admission Dx: Justifications for Admission: Justification of Admission Dx: N/A MARCELA YADAV MD Apr 15, 2021 13:45
[2021-04-15] MEDS: FOLIC/VIT B COMP W-C (RENAL) TABLET. PO SCH (13:54)
[2021-04-15] MEDS ORDERED: IRON SUCROSE COMPLEX 500 MG in IV NORMAL SALINE 250ML 250 ML IV ONE (14:00)
[2021-04-15] MEDS ORDERED: ESTROGENS, CONJUGATED 0.625 MG TABLET PO SCH (14:00)
[2021-04-15 15:00] VITALS: BP 116/66
[2021-04-15] MEDS: ESTRADIOL 1 MG TABLET. PO SCH ×2 (16:08→19:44)
[2021-04-15] MEDS ORDERED: IV NORMAL SALINE 1000ML BAG 1,000 ML IV ONE (17:00)
[2021-04-15] MEDS ORDERED: LIDOCAINE (700MG/PATCH) PATCH. TD ONE (17:00)
[2021-04-15 17:16] LABS: GC PROBE Negative (Negative)
--- NOTE | 2021-04-15 17:53 | NUR ---
Patient discharge paperwork given to her at approximately 1615, after both IV's were discontinued post Iron Sucrose infusion. Patient had went to bathroom and at approximately 1630 patient's daughter was screaming help- [employer]'s ran in and I followed finding daughter with patient in bathroom and patient was not coherent at that time. 3 of us helped patient to her feet and she was coming around and we helped her into the bed. Immediately I called a rapid response and checked the patient over no wounds were noted at that time and bp was 87/43 with a heart rate in the 90's. We immediately put the telepack back on patient and resumed taking vitals every 5 minutes. Next pressure was 104/57. I notified Dr. Marie that patient had passed out in the bathroom and became hypotensive. He dc'd discharge order and ordered a bolus of fluids and some labs. Patient was diaphoretic. Patient as her blood pressures got better and fluids were going in started complaining of neck pain. I reported the finding to Dr. Marie who ordered a lidocaine patch. I placed the patch and offered tylenol for the pain. Family at bedside. Patient resting in bed, and I have checked on her frequently. Her tele reads Sinus Rhythm and heart rate is better in the 70's and 80's now. I will continue to monitor for changes.
[2021-04-15 19:00] VITALS: BP 99/56
[2021-04-15 22:52] VITALS: BP 105/60
[2021-04-16 03:11] VITALS: BP 102/57
[2021-04-16 04:21] LABS: BASO # 0.1 x10^3/uL (0.0-0.2); BASO % 0 % (0-3); EOS % 0 % (0-3); HEMATOCRIT 29.1 % (36.0-47.0); HEMOGLOBIN 8.9 g/dL (12.0-15.5); LYMPH # 1.4 x10^3/uL (1.0-4.8); LYMPH % 9 % (24-48); MEAN CORPUSCULAR HEMOGLOBIN 20 pg (25-35); MEAN CORPUSCULAR HGB CONC 30 g/dL (31-37); MEAN CORPUSCULAR VOLUME 67 fL (79-100); MONO % 6 % (0-9); NEUT % 85 % (31-73); PLATELET COUNT 376 x10^3/uL (140-400); RED BLOOD COUNT 4.37 x10^6/uL (3.50-5.40); RED CELL DISTRIBUTION WIDTH 26.2 % (11.5-14.5); WHITE BLOOD COUNT 16.5 x10^3/uL (4.0-11.0)
[2021-04-16 07:00] VITALS: BP 135/76
[2021-04-16] MEDS: ESTRADIOL 1 MG TABLET. PO SCH (09:00)
[2021-04-16] MEDS: SENNOSIDES/DOCUSATE 8.6/50MG TABLET. PO SCH (09:08)
[2021-04-16] MEDS: FOLIC/VIT B COMP W-C (RENAL) TABLET. PO SCH (09:08)
[2021-04-16 11:00] VITALS: BP 125/68
--- NOTE | 2021-04-16 12:57 | RAD ---
EXAM: Chest, single view. HISTORY: Tachycardia. COMPARISON: None. FINDINGS: A frontal view of the chest is obtained. There is focal right lower lobe opacity likely due to overlying osseous and soft tissue shadows. There is no consolidation, pleural effusion or pneumot horax. The heart is normal in size. IMPRESSION: Right lower lobe opacity likely due to overlying artifact. Short-term radiographic follow -up evaluation can be performed to exclude infiltrate in this location. Electronically signed by: Sanjuana Carroll MD (04/16/2021 12:55 PM) [id number]
[2021-04-16 15:00] VITALS: BP 119/63
== END 2021-04-16 16:13 | disposition home or self-care (01) | DRG 761 ==
LOC: ER 21:42 → 2 NORTH 22:58 → 5 NORTH 04-15 06:25
PROVIDERS: ADMIT Internal Medicine; ATTEND Internal Medicine
PROC: 30233N1 Transfusion of Nonautologous Red Blood Cells into Peripheral Vein, Percutaneous Approach (ICD-10-PCS; principal; 2021-04-13)
DX: N83.201 Unspecified ovarian cyst, right side (principal); N93.8 Other specified abnormal uterine and vaginal bleeding; N85.8 Other specified noninflammatory disorders of uterus; N92.0 Excessive and frequent menstruation with regular cycle; D50.9 Iron deficiency anemia, unspecified
CPT/HCPCS: 36415; 36430; 71045; 76830; 76856; 80053; 81001; 82728; 83540; 83550; 84702; 85025; 85610; 85730; 86850; 86900; 86901; 86920; 87491; 87591; 96361; 96374; G0379; J1756; J2270; J7030; J7050; P9016; Q0111; 99285-25; G0378